=== PATIENT | female | born 1995 ===

== ENCOUNTER 2020-01-25 09:15 | Emergency (ER) | payer OTHER ==
[~2020-01-25] VITALS: Ht 172.7 cm; Wt 75.0 kg
[2020-01-25] MEDS ORDERED: KETOROLAC 60MG/2ML VIAL IM ONE (10:15)
[2020-01-25 10:22] VITALS: BP 108/45
[2020-01-25] MEDS ORDERED: HYDROCODONE/ACETAMINOPHEN 5/325MG TABLET PO ONE (11:15)
== END 2020-01-25 11:42 | disposition home or self-care (01) ==
LOC: ER 09:15
DX: M54.5 Low back pain (principal)
CPT/HCPCS: 72100; 81025; 96372; 99283; J1885